=== PATIENT | male | born 1945 | race Caucasian/White ===

== ENCOUNTER → 2017-07-16 | Outpatient (CLI) | payer MEDICARE ==
[~2017-07-16] MED LIST: AMLO5TAB2 PO; AMLODIPINE PO; ASPI-496 PO; BENA10TA2 PO; BENA20TA2 PO; DICL75TA2 PO; FINA5TAB4 PO; GABA300C10 PO; METH750T87 PO; METO25TA35 PO; MULT-717 PO; OXYC-302 PO; OXYC-306 PO; PRAV20TA2 PO; PRAV40TA2 PO; TAMS0.4C2 PO; TRAZ100T15 PO; TRAZ50TA18 PO
[2017-07-16 17:05] LABS: HEMATOCRIT 37.6 % (39.2-51.8); HEMOGLOBIN 12.7 g/dL (13.7-18.0); WHITE BLOOD COUNT 6.2 x10^3/uL (3.4-10)
== END | disposition home or self-care (01) ==
LOC: RAD 15:19
PROVIDERS: ATTEND Orthopaedic Surgery Orthopaedic Surgery of the Spine
DX: M47.816 Spondylosis without myelopathy or radiculopathy, lumbar region (principal); M47.817 Spondylosis without myelopathy or radiculopathy, lumbosacral region; M51.26 Other intervertebral disc displacement, lumbar region; M48.06 Spinal stenosis, lumbar region; M48.07 Spinal stenosis, lumbosacral region; M85.68 Other cyst of bone, other site; M46.1 Sacroiliitis, not elsewhere classified; M96.1 Postlaminectomy syndrome, not elsewhere classified; Z98.1 Arthrodesis status
CPT/HCPCS: 36415; 72148; 85025

== ENCOUNTER 2017-12-12 11:37 | Day surgery (SDC) | payer MEDICARE ==
[~2017-12-12] VITALS: Ht 180.3 cm; Wt 85.9 kg
[2017-12-12] MEDS ORDERED: LACTATED RINGERS 1,000 ML IV SCH (12:05)
[2017-12-12 12:23] VITALS: BP 155/96
[2017-12-12] MEDS ORDERED: CHLORHEXIDINE 15 ML BOTTLE MM ONE (13:00)
[2017-12-12] MEDS ORDERED: CIPROFLOXACIN/PMX 400MG/200ML 200 ML IVPB ONE (13:00)
[2017-12-12] MEDS ORDERED: SUCCINYLCHOLINE 20 MG/ML, 10ML ONE (13:11)
[2017-12-12] MEDS ORDERED: PROPOFOL 10 MG/ML, 20ML ONE ×3 (13:11→14:12)
[2017-12-12] MEDS ORDERED: PROMETHAZINE 12.5 MG SUPP PR PRN (13:30)
[2017-12-12] MEDS ORDERED: LABETALOL 5MG/ML, 20ML IV PRN (13:30)
[2017-12-12] MEDS ORDERED: HYDROmorphone 1 MG/ML, 1ML IV PRN (13:30)
[2017-12-12] MEDS ORDERED: FENTANYL PF 100 MCG/2ML IV PRN (13:30)
[2017-12-12] MEDS ORDERED: ONDANSETRON 2MG/ML, 2ML IVPush PRN (13:30)
[2017-12-12] MEDS ORDERED: hydrALAzine 20 MG/ML, 1ML IV PRN (13:30)
== END 2017-12-12 14:50 | disposition home or self-care (01) ==
LOC: OUT 11:37
PROVIDERS: ATTEND Internal Medicine Gastroenterology
DX: K86.2 Cyst of pancreas (principal); K21.0 Gastro-esophageal reflux disease with esophagitis; I10 Essential (primary) hypertension; Z98.890 Other specified postprocedural states; Z96.649 Presence of unspecified artificial hip joint; Z79.82 Long term (current) use of aspirin; Z88.6 Allergy status to analgesic agent; Z88.0 Allergy status to penicillin
CPT/HCPCS: 43239; 43242; 88305; J0744; J2704; J7120; J0330

== ENCOUNTER 2018-03-26 10:55 | Inpatient (IN) | payer MEDICARE ==
[~2018-03-26] VITALS: Ht 180.3 cm; Wt 89.4 kg
[2018-03-26] MEDS ORDERED: GABA300C10 PO (11:18)
[2018-03-26] MEDS ORDERED: PANT40TA5 PO (11:18)
[2018-03-26] MEDS ORDERED: HYDR-3341 PO (11:18)
[2018-03-26] MEDS ORDERED: SODIUM CHLORIDE FLUSH 10ML SYR IVF ONE ×2 (11:30→12:00)
[2018-03-26 11:46] LABS: CHLORIDE 102 mmol/L (98-107)
[2018-03-26 11:49] LABS: BASOPHILS % (AUTO) 0 % (0-1); EOSINOPHILS # (AUTO) 0.01 x10^3/uL (0-0.4); EOSINOPHILS % (AUTO) 0 % (1-7); LYMPHOCYTES # (AUTO) 0.45 x10^3/uL (1-3.4); LYMPHOCYTES % (AUTO) 3 % (22-44); MD NO; MEAN CORPUSCULAR HEMOGLOBIN 33.2 pg (27.5-34.5); MEAN CORPUSCULAR HGB CONC 33.8 g/dL (33.2-36.2); MEAN CORPUSCULAR VOLUME 98.2 fL (81-97); MEAN PLATELET VOLUME 7.9 fL (7.4-10.4); MONOCYTES # (AUTO) 0.96 x10^3/uL (0.2-0.8); MONOCYTES % (AUTO) 6 % (2-9); NEUTROPHILS # (AUTO) 14.79 x10^3/uL (1.8-6.8); NEUTROPHILS % (AUTO) 91 % (42-75); PLATELET COUNT 173 x10^3/uL (130-400); RED BLOOD COUNT 4.16 x10^6/uL (4.38-5.82); RED CELL DISTRIBUTION WIDTH 14.8 % (9.4-14.8)
[2018-03-26 11:55] LABS: ALANINE AMINOTRANSFERASE 85 U/L (12-78); ALBUMIN 3.5 g/dL (3.4-5.0); ALKALINE PHOSPHATASE 180 U/L (45-117); ANION GAP 9 mmol/L (5-15); BILIRUBIN,TOTAL 1.1 mg/dL (0.2-1.0); CALCIUM 8.4 mg/dL (8.5-10.1); CREATININE 1.81 mg/dL (0.7-1.3); TOTAL PROTEIN 7.1 g/dL (6.4-8.2); TROPONIN I < 0.015 ng/mL (0.000-0.045)
[2018-03-26] MEDS ORDERED: CEFTRIAXONE PMX 1GM/50ML 50 ML IVPB ONE (12:00)
[2018-03-26] MEDS ORDERED: AZITHROMYCIN 500 MG in SODIUM CHLORIDE 0.9% 250 ML IV ONE (12:00)
[2018-03-26] MEDS ORDERED: SODIUM CHLORIDE 0.9% 1,000ML IVBOLUS ONE (12:00)
[2018-03-26 12:21] LABS: MICROSCOPIC INDICATED
[2018-03-26 12:25] LABS: CULTURE INDICATED? NO
[2018-03-26] MEDS ORDERED: CEFTRIAXONE PMX 1GM/50ML 50 ML ONE (12:27)
[2018-03-26] MEDS ORDERED: GUAIFENESIN/DM 200-20MG, 10ML UDC PO PRN (12:30)
[2018-03-26] MEDS ORDERED: ONDANSETRON 2MG/ML, 2ML IVPush PRN (12:30)
[2018-03-26] MEDS ORDERED: ACETAMINOPHEN 325 MG TABLET PO PRN (12:30)
[2018-03-26] MEDS ORDERED: DOCUSATE 100 MG CAPSULE PO PRN (12:30)
[2018-03-26] MEDS ORDERED: MAGNESIUM SULFATE PMX 2GM/50ML 50 ML IV ONE (13:22)
[2018-03-26] MEDS: SODIUM CHLORIDE 0.9% 1,000 ML IV SCH (14:44)
[2018-03-26] MEDS: OXYcodone/APAP 5/325MG TABLET PO PRN ×2 (14:44→22:53)
[2018-03-26] MEDS: ENOXAPARIN 40 MG/0.4 ML SQ SCH (15:19)
[2018-03-26 15:22] VITALS: BP 114/77
[2018-03-26 19:48] VITALS: BP 101/65
[2018-03-26] MEDS: GABAPENTIN 300 MG CAPSULE PO SCH (20:22)
[2018-03-26] MEDS: PANTOPROZOLE 40MG TABLET PO SCH (20:22)
[2018-03-26] MEDS: PRAVASTATIN 20 MG TABLET PO SCH (20:22)
[2018-03-27] MEDS: SODIUM CHLORIDE 0.9% 1,000 ML IV SCH ×3 (00:56→20:04)
[2018-03-27 01:10] VITALS: BP 148/79
[2018-03-27 06:18] LABS: BASOPHILS # (AUTO) 0.01 x10^3/uL (0-0.1); BASOPHILS % (AUTO) 0 % (0-1); EOSINOPHILS # (AUTO) 0.08 x10^3/uL (0-0.4); EOSINOPHILS % (AUTO) 1 % (1-7); HCT (SEDRATE) 34.1 % (39.2-51.8); LYMPHOCYTES # (AUTO) 0.48 x10^3/uL (1-3.4); LYMPHOCYTES % (AUTO) 6 % (22-44); MD NO; MEAN CORPUSCULAR HEMOGLOBIN 32.9 pg (27.5-34.5); MEAN CORPUSCULAR HGB CONC 33.6 g/dL (33.2-36.2); MEAN CORPUSCULAR VOLUME 97.8 fL (81-97); MEAN PLATELET VOLUME 7.1 fL (7.4-10.4); MONOCYTES # (AUTO) 0.35 x10^3/uL (0.2-0.8); MONOCYTES % (AUTO) 4 % (2-9); NEUTROPHILS # (AUTO) 7.91 x10^3/uL (1.8-6.8); NEUTROPHILS % (AUTO) 90 % (42-75); PLATELET COUNT 131 x10^3/uL (130-400); RED BLOOD COUNT 3.48 x10^6/uL (4.38-5.82); RED CELL DISTRIBUTION WIDTH 15.4 % (9.4-14.8)
[2018-03-27 06:28] LABS: ALANINE AMINOTRANSFERASE 53 U/L (12-78); ALBUMIN 2.6 g/dL (3.4-5.0); ANION GAP 7 mmol/L (5-15); CALCIUM 8.1 mg/dL (8.5-10.1); CHLORIDE 107 mmol/L (98-107); CREATININE 1.29 mg/dL (0.7-1.3)
[2018-03-27 06:30] LABS: ALKALINE PHOSPHATASE 132 U/L (45-117); BILIRUBIN,TOTAL 0.8 mg/dL (0.2-1.0); TOTAL PROTEIN 5.7 g/dL (6.4-8.2)
[2018-03-27 06:57] LABS: SEDIMENTATION RATE 34 mm/hr (0-10)
[2018-03-27 08:00] VITALS: BP 160/94
[2018-03-27] MEDS: CEFTRIAXONE PMX 1GM/50ML 50 ML IV SCH (08:17)
[2018-03-27] MEDS: PANTOPROZOLE 40MG TABLET PO SCH ×2 (08:17→20:01)
[2018-03-27] MEDS: GABAPENTIN 300 MG CAPSULE PO SCH ×2 (08:17→20:01)
[2018-03-27] MEDS: ASPIRIN 81 MG TABLET EC PO SCH (08:17)
[2018-03-27] MEDS ORDERED: TRAZODONE 50MG TABLET PO SCH (09:00)
[2018-03-27] MEDS: AZITHROMYCIN 500 MG in SODIUM CHLORIDE 0.9% 250 ML IV SCH (11:02)
[2018-03-27] MEDS ORDERED: SODIUM CHLORIDE 0.9% 1,000 ML IV SCH (13:19)
[2018-03-27] MEDS: ENOXAPARIN 40 MG/0.4 ML SQ SCH (14:34)
[2018-03-27 14:35] VITALS: BP 146/87
[2018-03-27] MEDS: OXYcodone/APAP 5/325MG TABLET PO PRN (15:46)
[2018-03-27 18:28] VITALS: BP 147/82
[2018-03-27] MEDS: PRAVASTATIN 20 MG TABLET PO SCH (20:01)
[2018-03-28 02:40] VITALS: BP 128/78
[2018-03-28] MEDS: SODIUM CHLORIDE 0.9% 1,000 ML IV SCH (04:37)
[2018-03-28] MEDS: OXYcodone/APAP 5/325MG TABLET PO PRN (05:47)
[2018-03-28] MEDS ORDERED: LEVO750T26 PO (07:36)
[2018-03-28] MEDS ORDERED: LEVOFLOXACIN 750 MG TABLET PO SCH (09:00)
[2018-03-28 10:10] VITALS: BP 169/88
[2018-03-28] MEDS: ASPIRIN 81 MG TABLET EC PO SCH (10:22)
[2018-03-28] MEDS: GABAPENTIN 300 MG CAPSULE PO SCH (10:22)
[2018-03-28] MEDS: CEFTRIAXONE PMX 1GM/50ML 50 ML IV SCH (10:22)
[2018-03-28] MEDS: PANTOPROZOLE 40MG TABLET PO SCH (10:22)
[2018-03-28] MEDS: AZITHROMYCIN 500 MG in SODIUM CHLORIDE 0.9% 250 ML IV SCH (10:58)
[2018-03-28 13:11] VITALS: BP 158/80
== END 2018-03-28 13:29 | disposition home or self-care (01) | DRG 871 ==
LOC: ED 12:10 → EDIP 12:19 → SUATTDRO 12:26 → 3NW 13:18 → DCLOUNGE 03-28 13:10
PROVIDERS: ADMIT Internal Medicine; ATTEND Internal Medicine
DX: A41.9 Sepsis, unspecified organism (principal); J15.9 Unspecified bacterial pneumonia; E43 Unspecified severe protein-calorie malnutrition; N17.9 Acute kidney failure, unspecified; G62.9 Polyneuropathy, unspecified; E83.42 Hypomagnesemia; Z88.0 Allergy status to penicillin; Z68.27 Body mass index [BMI] 27.0-27.9, adult; E66.9 Obesity, unspecified; E78.5 Hyperlipidemia, unspecified; F10.10 Alcohol abuse, uncomplicated; G47.00 Insomnia, unspecified; G89.4 Chronic pain syndrome; I12.9 Hypertensive chronic kidney disease with stage 1 through stage 4 chronic kidney disease, or unspecified chronic kidney disease; N18.2 Chronic kidney disease, stage 2 (mild); R65.20 Severe sepsis without septic shock; Z87.11 Personal history of peptic ulcer disease; Z95.2 Presence of prosthetic heart valve; Z96.649 Presence of unspecified artificial hip joint
CPT/HCPCS: 36415; 71045; 80053; 81001; 83605; 83735; 84145; 84484; 85025; 85651; 87040; 93005; 96365; 96366; 96368; J0456; J0696; J1650; J3475; J7030; J7050

== ENCOUNTER 2020-03-22 14:14 | Inpatient (IN) | payer MEDICARE ==
[~2020-03-22] VITALS: Ht 180.3 cm; Wt 74.7 kg
[~2020-03-22 14:14] MED LIST changes: +AMLO-150 PO; -AMLO5TAB2 PO; -BENA10TA2 PO; +BENA10TA59 PO; -BENA20TA2 PO; +BENA20TA54 PO; -DICL75TA2 PO; +DICL75TA3 PO; +HYDR-3341 PO; +LEVO750T26 PO; +PANT40TA5 PO; +TRAZ-175 PO; -TRAZ100T15 PO; -TRAZ50TA18 PO; +TRAZ50TA66 PO
[2020-03-22 18:26] VITALS: BP 118/81
[2020-03-22] MEDS ORDERED: LEVO75TA PO (18:27)
[2020-03-22] MEDS ORDERED: DULO30CA44 PO (18:27)
[2020-03-22] MEDS ORDERED: TAMS-11 PO (18:27)
[2020-03-22] MEDS ORDERED: PRAV40TA PO (18:27)
[2020-03-22] MEDS ORDERED: MULT-658 PO (18:27)
[2020-03-22] MEDS ORDERED: LISI10TA2 PO (18:27)
[2020-03-22] MEDS ORDERED: TRAZ-96 PO (18:27)
[2020-03-22] MEDS ORDERED: OMEP20CA20 PO (18:27)
[2020-03-22] MEDS ORDERED: SODIUM CHLORIDE 0.9% 1,000 ML IV SCH (19:19)
[2020-03-22] MEDS ORDERED: BISACODYL 10 MG SUPP PR PRN (19:30)
[2020-03-22] MEDS ORDERED: PLEASE ENTER HEIGHT AND WEIGHT MC SCH (19:30)
[2020-03-22] MEDS ORDERED: ACETAMINOPHEN 325 MG TABLET PO PRN (19:30)
[2020-03-22] MEDS ORDERED: PLEASE ENTER HEIGHT MC SCH (19:30)
[2020-03-22] MEDS ORDERED: ONDANSETRON ODT 4 MG PO PRN (19:30)
[2020-03-22] MEDS ORDERED: POLYETHYLENE GLYCOL 17 GM PACKET PO PRN (19:30)
[2020-03-22 19:42] VITALS: BP 117/75
[2020-03-22 20:05] LABS: ALANINE AMINOTRANSFERASE 37 U/L (12-78); ALBUMIN 1.5 g/dL (3.4-5.0); ANION GAP 7 mmol/L (5-15); CALCIUM 7.4 mg/dL (8.5-10.1); CHLORIDE 101 mmol/L (98-107); CREATININE 1.38 mg/dL (0.7-1.3)
[2020-03-22 20:11] LABS: BASOPHILS # (AUTO) 0.02 x10^3/uL (0-0.1); BASOPHILS % (AUTO) 0 % (0-1); EOSINOPHILS # (AUTO) 0.13 x10^3/uL (0-0.4); EOSINOPHILS % (AUTO) 2 % (1-7); LYMPHOCYTES # (AUTO) 0.71 x10^3/uL (1-3.4); LYMPHOCYTES % (AUTO) 11 % (22-44); MD NO; MEAN CORPUSCULAR HEMOGLOBIN 31.9 pg (27.5-34.5); MEAN CORPUSCULAR HGB CONC 32.8 g/dL (33.2-36.2); MEAN CORPUSCULAR VOLUME 97.4 fL (81-97); MEAN PLATELET VOLUME 7.7 fL (7.4-10.4); MONOCYTES # (AUTO) 0.57 x10^3/uL (0.2-0.8); MONOCYTES % (AUTO) 9 % (2-9); NEUTROPHILS # (AUTO) 5.24 x10^3/uL (1.8-6.8); NEUTROPHILS % (AUTO) 79 % (42-75); PLATELET COUNT 188 x10^3/uL (130-400); RED BLOOD COUNT 3.03 x10^6/uL (4.38-5.82); RED CELL DISTRIBUTION WIDTH 15.8 % (9.4-14.8)
[2020-03-22 20:16] LABS: ALKALINE PHOSPHATASE 94 U/L (45-117); BILIRUBIN,TOTAL 0.3 mg/dL (0.2-1.0); CREATINE KINASE, TOTAL 95 U/L (39-308); TOTAL PROTEIN 4.9 g/dL (6.4-8.2)
[2020-03-22] MEDS: CEFTRIAXONE PMX 1GM/50ML 50 ML IV SCH (20:27)
[2020-03-22] MEDS: HEPARIN 5,000 UNITS/ML, 1ML SQ SCH (20:27)
[2020-03-22] MEDS: PRAVASTATIN 40 MG TABLET PO SCH (20:28)
[2020-03-22] MEDS: OMEPRAZOLE 20 MG CAPSULE.DR PO SCH (20:28)
[2020-03-22] MEDS: TRAZODONE 50MG TABLET PO SCH (20:28)
[2020-03-22 20:31] LABS: FREE T4 (FREE THYROXINE) 1.18 ng/dL (0.76-1.46)
[2020-03-22] MEDS ORDERED: MAGNESIUM SULFATE PMX 4GM/100M 100 ML IVPB ONE (21:00)
[2020-03-22 21:31] VITALS: BP 119/79
[2020-03-23 01:22] VITALS: BP 140/88
[2020-03-23] MEDS: HEPARIN 5,000 UNITS/ML, 1ML SQ SCH ×3 (03:56→20:03)
[2020-03-23 05:44] LABS: BASOPHILS # (AUTO) 0.02 x10^3/uL (0-0.1); BASOPHILS % (AUTO) 0 % (0-1); EOSINOPHILS # (AUTO) 0.14 x10^3/uL (0-0.4); EOSINOPHILS % (AUTO) 3 % (1-7); LYMPHOCYTES # (AUTO) 0.69 x10^3/uL (1-3.4); LYMPHOCYTES % (AUTO) 12 % (22-44); MD NO; MEAN CORPUSCULAR HEMOGLOBIN 31.4 pg (27.5-34.5); MEAN CORPUSCULAR HGB CONC 32.9 g/dL (33.2-36.2); MEAN CORPUSCULAR VOLUME 95.3 fL (81-97); MEAN PLATELET VOLUME 7.7 fL (7.4-10.4); MONOCYTES # (AUTO) 0.45 x10^3/uL (0.2-0.8); MONOCYTES % (AUTO) 8 % (2-9); NEUTROPHILS # (AUTO) 4.37 x10^3/uL (1.8-6.8); NEUTROPHILS % (AUTO) 77 % (42-75); PLATELET COUNT 184 x10^3/uL (130-400)
[2020-03-23 05:56] LABS: ANION GAP 9 mmol/L (5-15); CALCIUM 7.6 mg/dL (8.5-10.1); CHLORIDE 101 mmol/L (98-107)
[2020-03-23 05:57] LABS: CREATININE 1.18 mg/dL (0.7-1.3)
[2020-03-23] MEDS: LEVOTHYROXINE 88 MCG TABLET PO SCH (06:00)
[2020-03-23] MEDS ORDERED: LEVOTHYROXINE 75 MCG TABLET PO SCH (06:00)
[2020-03-23] MEDS: MULTIVITAMIN 1 TABLET PO SCH (06:00)
[2020-03-23 07:35] VITALS: BP 131/76
[2020-03-23] MEDS: DULOXETINE 30 MG CAPSULE.DR PO SCH (08:38)
[2020-03-23] MEDS: OMEPRAZOLE 20 MG CAPSULE.DR PO SCH ×2 (08:38→20:03)
[2020-03-23] MEDS: LISINOPRIL 10 MG TABLET PO SCH (08:39)
[2020-03-23] MEDS: TAMSULOSIN 0.4 MG CAP.ER.24H PO SCH (08:39)
[2020-03-23] MEDS: SENNA/DOCUSATE TABLET PO SCH (08:51)
[2020-03-23 13:49] VITALS: BP 100/69
[2020-03-23 18:48] VITALS: BP 130/80
[2020-03-23] MEDS: PRAVASTATIN 40 MG TABLET PO SCH (20:03)
[2020-03-23] MEDS: CEFTRIAXONE PMX 1GM/50ML 50 ML IV SCH (20:03)
[2020-03-23] MEDS: TRAZODONE 50MG TABLET PO SCH (20:03)
[2020-03-24 01:46] VITALS: BP 141/84
[2020-03-24] MEDS: HEPARIN 5,000 UNITS/ML, 1ML SQ SCH ×3 (03:27→20:09)
[2020-03-24] MEDS: MULTIVITAMIN 1 TABLET PO SCH (05:40)
[2020-03-24] MEDS: LEVOTHYROXINE 88 MCG TABLET PO SCH (05:40)
[2020-03-24 08:01] VITALS: BP 125/70
[2020-03-24] MEDS: LISINOPRIL 10 MG TABLET PO SCH (08:04)
[2020-03-24] MEDS: SENNA/DOCUSATE TABLET PO SCH (08:04)
[2020-03-24] MEDS: DULOXETINE 30 MG CAPSULE.DR PO SCH (08:04)
[2020-03-24] MEDS: OMEPRAZOLE 20 MG CAPSULE.DR PO SCH ×2 (08:04→20:08)
[2020-03-24] MEDS: TAMSULOSIN 0.4 MG CAP.ER.24H PO SCH (08:04)
[2020-03-24 13:18] VITALS: BP 121/75
[2020-03-24] MEDS: CARVEDILOL 6.25 MG TABLET PO SCH (17:24)
[2020-03-24 18:55] VITALS: BP 119/65
[2020-03-24] MEDS: PRAVASTATIN 40 MG TABLET PO SCH (20:08)
[2020-03-24] MEDS: CEFTRIAXONE PMX 1GM/50ML 50 ML IV SCH (20:08)
[2020-03-24] MEDS: TRAZODONE 50MG TABLET PO SCH (20:08)
[2020-03-25 02:00] VITALS: BP 118/72
[2020-03-25] MEDS: HEPARIN 5,000 UNITS/ML, 1ML SQ SCH ×3 (04:43→20:23)
[2020-03-25 05:47] VITALS: BP 133/85
[2020-03-25] MEDS: MULTIVITAMIN 1 TABLET PO SCH (05:47)
[2020-03-25] MEDS: LEVOTHYROXINE 88 MCG TABLET PO SCH (05:47)
[2020-03-25] MEDS: CARVEDILOL 6.25 MG TABLET PO SCH ×2 (05:47→16:58)
[2020-03-25 06:56] VITALS: BP 126/80
[2020-03-25] MEDS: OMEPRAZOLE 20 MG CAPSULE.DR PO SCH ×2 (09:14→20:25)
[2020-03-25] MEDS: DULOXETINE 30 MG CAPSULE.DR PO SCH (09:14)
[2020-03-25] MEDS: SENNA/DOCUSATE TABLET PO SCH (09:14)
[2020-03-25] MEDS: TAMSULOSIN 0.4 MG CAP.ER.24H PO SCH (09:14)
[2020-03-25 10:13] LABS: ANION GAP 9 mmol/L (5-15); CALCIUM 7.9 mg/dL (8.5-10.1); CHLORIDE 105 mmol/L (98-107); CREATININE 0.86 mg/dL (0.7-1.3)
[2020-03-25] MEDS: GABAPENTIN 100 MG CAPSULE PO SCH ×3 (11:01→20:24)
[2020-03-25] MEDS ORDERED: MAGNESIUM SULFATE 1 GM in SODIUM CHLORIDE 0.9% 50 ML IV ONE (13:30)
[2020-03-25 13:48] VITALS: BP 133/80
[2020-03-25 16:57] VITALS: BP 125/78
[2020-03-25 19:44] VITALS: BP 121/75
[2020-03-25] MEDS: PRAVASTATIN 40 MG TABLET PO SCH (20:24)
[2020-03-25] MEDS: TRAZODONE 50MG TABLET PO SCH (20:25)
[2020-03-25] MEDS: CEFTRIAXONE PMX 1GM/50ML 50 ML IV SCH (22:27)
[2020-03-26 00:26] VITALS: BP 128/80
[2020-03-26] MEDS: HEPARIN 5,000 UNITS/ML, 1ML SQ SCH ×3 (04:30→20:05)
[2020-03-26] MEDS: CARVEDILOL 6.25 MG TABLET PO SCH ×2 (06:17→16:57)
[2020-03-26] MEDS: LEVOTHYROXINE 88 MCG TABLET PO SCH (06:17)
[2020-03-26] MEDS: MULTIVITAMIN 1 TABLET PO SCH (06:17)
[2020-03-26 06:34] VITALS: BP 113/67
[2020-03-26] MEDS: SENNA/DOCUSATE TABLET PO SCH (08:19)
[2020-03-26] MEDS: GABAPENTIN 100 MG CAPSULE PO SCH ×3 (08:19→20:05)
[2020-03-26] MEDS: TAMSULOSIN 0.4 MG CAP.ER.24H PO SCH (08:19)
[2020-03-26] MEDS: OMEPRAZOLE 20 MG CAPSULE.DR PO SCH ×2 (08:20→20:05)
[2020-03-26] MEDS: DULOXETINE 30 MG CAPSULE.DR PO SCH (08:20)
[2020-03-26] MEDS ORDERED: OXYcodone/APAP 5/325MG TABLET ONE (11:52)
[2020-03-26] MEDS: OXYcodone/APAP 5/325MG TABLET PO PRN ×2 (11:56→16:57)
[2020-03-26 13:14] VITALS: BP 101/63
[2020-03-26 16:52] VITALS: BP 113/69
[2020-03-26 19:39] VITALS: BP 96/61
[2020-03-26] MEDS: PRAVASTATIN 40 MG TABLET PO SCH (20:05)
[2020-03-26] MEDS: TRAZODONE 50MG TABLET PO SCH (20:05)
[2020-03-26] MEDS: CEFTRIAXONE PMX 1GM/50ML 50 ML IV SCH (22:40)
[2020-03-27 02:36] VITALS: BP 108/63
[2020-03-27] MEDS: HEPARIN 5,000 UNITS/ML, 1ML SQ SCH ×3 (04:30→20:18)
[2020-03-27 05:45] LABS: BASOPHILS # (AUTO) 0.03 x10^3/uL (0-0.1); BASOPHILS % (AUTO) 1 % (0-1); EOSINOPHILS # (AUTO) 0.29 x10^3/uL (0-0.4); EOSINOPHILS % (AUTO) 5 % (1-7); LYMPHOCYTES # (AUTO) 0.71 x10^3/uL (1-3.4); LYMPHOCYTES % (AUTO) 13 % (22-44); MD NO; MEAN CORPUSCULAR HEMOGLOBIN 31.1 pg (27.5-34.5); MEAN CORPUSCULAR HGB CONC 32.8 g/dL (33.2-36.2); MEAN CORPUSCULAR VOLUME 94.8 fL (81-97); MEAN PLATELET VOLUME 7.5 fL (7.4-10.4); MONOCYTES # (AUTO) 0.51 x10^3/uL (0.2-0.8); MONOCYTES % (AUTO) 9 % (2-9); NEUTROPHILS # (AUTO) 3.99 x10^3/uL (1.8-6.8); NEUTROPHILS % (AUTO) 72 % (42-75); PLATELET COUNT 218 x10^3/uL (130-400); RED BLOOD COUNT 3.01 x10^6/uL (4.38-5.82); RED CELL DISTRIBUTION WIDTH 16.3 % (9.4-14.8)
[2020-03-27 05:50] LABS: ANION GAP 6 mmol/L (5-15); CHLORIDE 105 mmol/L (98-107); CREATININE 0.84 mg/dL (0.7-1.3)
[2020-03-27] MEDS: LEVOTHYROXINE 88 MCG TABLET PO SCH (05:57)
[2020-03-27] MEDS: CARVEDILOL 6.25 MG TABLET PO SCH (05:58)
[2020-03-27] MEDS: MULTIVITAMIN 1 TABLET PO SCH (05:58)
[2020-03-27] MEDS: OXYcodone/APAP 5/325MG TABLET PO PRN ×2 (06:06→15:24)
[2020-03-27 06:59] VITALS: BP 111/68
[2020-03-27] MEDS: SENNA/DOCUSATE TABLET PO SCH (08:16)
[2020-03-27] MEDS: OMEPRAZOLE 20 MG CAPSULE.DR PO SCH ×2 (08:16→20:18)
[2020-03-27] MEDS: TAMSULOSIN 0.4 MG CAP.ER.24H PO SCH (08:16)
[2020-03-27] MEDS: GABAPENTIN 100 MG CAPSULE PO SCH ×3 (08:16→20:18)
[2020-03-27] MEDS: DULOXETINE 30 MG CAPSULE.DR PO SCH (08:16)
[2020-03-27 13:29] VITALS: BP 109/70
[2020-03-27 19:03] VITALS: BP 92/60
[2020-03-27] MEDS: PRAVASTATIN 40 MG TABLET PO SCH (20:18)
[2020-03-27] MEDS: CARVEDILOL 3.125 MG TABLET PO SCH (20:23)
[2020-03-27] MEDS: TRAZODONE 50MG TABLET PO SCH (20:23)
[2020-03-27] MEDS: CEFTRIAXONE PMX 1GM/50ML 50 ML IV SCH (22:48)
[2020-03-28 00:57] VITALS: BP 108/70
[2020-03-28] MEDS: HEPARIN 5,000 UNITS/ML, 1ML SQ SCH ×3 (04:30→20:25)
[2020-03-28] MEDS: LEVOTHYROXINE 88 MCG TABLET PO SCH (06:05)
[2020-03-28] MEDS: CARVEDILOL 3.125 MG TABLET PO SCH ×2 (06:06→17:40)
[2020-03-28] MEDS: MULTIVITAMIN 1 TABLET PO SCH (06:06)
[2020-03-28] MEDS: OXYcodone/APAP 5/325MG TABLET PO PRN ×3 (06:12→16:13)
[2020-03-28 07:03] VITALS: BP 100/64
[2020-03-28] MEDS: OMEPRAZOLE 20 MG CAPSULE.DR PO SCH ×2 (09:38→20:26)
[2020-03-28] MEDS: GABAPENTIN 100 MG CAPSULE PO SCH ×3 (09:38→20:26)
[2020-03-28] MEDS: TAMSULOSIN 0.4 MG CAP.ER.24H PO SCH (09:38)
[2020-03-28] MEDS: DULOXETINE 30 MG CAPSULE.DR PO SCH (09:38)
[2020-03-28] MEDS: SENNA/DOCUSATE TABLET PO SCH (09:39)
[2020-03-28 14:05] VITALS: BP 99/61
[2020-03-28 17:36] VITALS: BP 112/72
[2020-03-28 19:36] VITALS: BP 95/64
[2020-03-28] MEDS: TRAZODONE 50MG TABLET PO SCH (20:26)
[2020-03-28] MEDS: PRAVASTATIN 40 MG TABLET PO SCH (20:26)
[2020-03-28] MEDS: CEFTRIAXONE PMX 1GM/50ML 50 ML IV SCH (22:16)
[2020-03-29 00:11] VITALS: BP 121/77
[2020-03-29 05:15] VITALS: BP 123/79
[2020-03-29] MEDS: MULTIVITAMIN 1 TABLET PO SCH (05:16)
[2020-03-29] MEDS: HEPARIN 5,000 UNITS/ML, 1ML SQ SCH ×3 (05:16→20:24)
[2020-03-29] MEDS: CARVEDILOL 3.125 MG TABLET PO SCH ×2 (05:16→18:08)
[2020-03-29] MEDS: LEVOTHYROXINE 88 MCG TABLET PO SCH (05:16)
[2020-03-29 05:19] LABS: ANION GAP 9 mmol/L (5-15); CALCIUM 7.9 mg/dL (8.5-10.1); CHLORIDE 105 mmol/L (98-107); CREATININE 0.77 mg/dL (0.7-1.3)
[2020-03-29 06:41] VITALS: BP 126/81
[2020-03-29] MEDS: SODIUM CHLORIDE 0.9% 500 ML IV SCH ×2 (09:00→09:43)
[2020-03-29] MEDS: DULOXETINE 30 MG CAPSULE.DR PO SCH (09:43)
[2020-03-29] MEDS: OXYcodone/APAP 5/325MG TABLET PO PRN (09:43)
[2020-03-29] MEDS: SENNA/DOCUSATE TABLET PO SCH (09:44)
[2020-03-29] MEDS: OMEPRAZOLE 20 MG CAPSULE.DR PO SCH ×2 (09:44→20:24)
[2020-03-29] MEDS: GABAPENTIN 100 MG CAPSULE PO SCH ×3 (09:44→20:24)
[2020-03-29] MEDS: TAMSULOSIN 0.4 MG CAP.ER.24H PO SCH (09:44)
[2020-03-29 13:52] VITALS: BP 116/73
[2020-03-29 18:06] VITALS: BP 113/71
[2020-03-29 20:19] VITALS: BP 97/61
[2020-03-29] MEDS: PRAVASTATIN 40 MG TABLET PO SCH (20:24)
[2020-03-29] MEDS: TRAZODONE 50MG TABLET PO SCH (20:24)
[2020-03-29] MEDS: CEFTRIAXONE PMX 1GM/50ML 50 ML IV SCH (23:42)
[2020-03-30 01:03] VITALS: BP 115/72
[2020-03-30] MEDS: HEPARIN 5,000 UNITS/ML, 1ML SQ SCH ×3 (04:30→20:28)
[2020-03-30] MEDS: CARVEDILOL 3.125 MG TABLET PO SCH ×2 (06:20→18:01)
[2020-03-30] MEDS: LEVOTHYROXINE 88 MCG TABLET PO SCH (06:20)
[2020-03-30] MEDS: MULTIVITAMIN 1 TABLET PO SCH (06:20)
[2020-03-30 07:13] VITALS: BP 149/88
[2020-03-30] MEDS: OMEPRAZOLE 20 MG CAPSULE.DR PO SCH ×2 (09:48→20:27)
[2020-03-30] MEDS: DULOXETINE 30 MG CAPSULE.DR PO SCH (09:48)
[2020-03-30] MEDS: TAMSULOSIN 0.4 MG CAP.ER.24H PO SCH (09:48)
[2020-03-30] MEDS: SENNA/DOCUSATE TABLET PO SCH (09:48)
[2020-03-30] MEDS: GABAPENTIN 100 MG CAPSULE PO SCH ×3 (09:49→20:28)
[2020-03-30] MEDS: OXYcodone/APAP 5/325MG TABLET PO PRN ×2 (11:19→16:31)
[2020-03-30 12:16] VITALS: BP 124/76
[2020-03-30] MEDS ORDERED: VANCOMYCIN PER PHARMACY MC PRN (16:00)
[2020-03-30] MEDS ORDERED: PHARMACOKINETIC MONITORING MC PRN (16:30)
[2020-03-30] MEDS: VANCOMYCIN 1,900 MG in SODIUM CHLORIDE 0.9% 250 ML IV ONE ×2 (18:01→21:20)
[2020-03-30 18:28] VITALS: BP 109/69
[2020-03-30] MEDS ORDERED: SODIUM CHLORIDE 0.9%, 500ML IVBOLUS ONE (19:00)
[2020-03-30] MEDS: TRAZODONE 50MG TABLET PO SCH (20:27)
[2020-03-30] MEDS: PRAVASTATIN 40 MG TABLET PO SCH (20:27)
[2020-03-30] MEDS ORDERED: VANCOMYCIN 1,500 MG in SODIUM CHLORIDE 0.9% 250 ML IV SCH (21:00)
[2020-03-30] MEDS: CEFTRIAXONE PMX 1GM/50ML 50 ML IV SCH (23:45)
[2020-03-31 00:06] VITALS: BP 137/86
[2020-03-31] MEDS: HEPARIN 5,000 UNITS/ML, 1ML SQ SCH ×3 (04:43→20:29)
[2020-03-31 06:03] VITALS: BP 131/79
[2020-03-31] MEDS: LEVOTHYROXINE 88 MCG TABLET PO SCH (06:07)
[2020-03-31] MEDS: MULTIVITAMIN 1 TABLET PO SCH (06:07)
[2020-03-31] MEDS: CARVEDILOL 3.125 MG TABLET PO SCH ×2 (06:08→17:49)
[2020-03-31] MEDS: GABAPENTIN 100 MG CAPSULE PO SCH ×3 (08:26→20:30)
[2020-03-31] MEDS: OMEPRAZOLE 20 MG CAPSULE.DR PO SCH ×2 (08:26→20:29)
[2020-03-31] MEDS: TAMSULOSIN 0.4 MG CAP.ER.24H PO SCH (08:26)
[2020-03-31] MEDS: DULOXETINE 30 MG CAPSULE.DR PO SCH (08:26)
[2020-03-31] MEDS: SENNA/DOCUSATE TABLET PO SCH (08:26)
[2020-03-31] MEDS: OXYcodone/APAP 5/325MG TABLET PO PRN ×3 (08:27→20:21)
[2020-03-31] MEDS ORDERED: FLUMAZENIL 0.1 MG/1 ML, 5ML ONE (13:47)
[2020-03-31] MEDS ORDERED: MIDAZOLAM 1 MG/ML, 5ML ONE (13:47)
[2020-03-31] MEDS ORDERED: FENTANYL PF 100 MCG/2ML ONE (13:47)
[2020-03-31] MEDS ORDERED: NALOXONE 1 MG/ML, 2ML ONE (13:48)
[2020-03-31] MEDS ORDERED: CYCLOBENZAPRINE 10 MG TABLET PO PRN (16:30)
[2020-03-31] MEDS ORDERED: VANCOMYCIN 1,500 MG in SODIUM CHLORIDE 0.9% 250 ML IV SCH (16:30)
[2020-03-31 16:48] VITALS: BP 107/71
[2020-03-31] MEDS: MORPHINE SULFATE 4 MG/ML, 1ML IVPush PRN (17:50)
[2020-03-31 19:08] VITALS: BP 123/73
[2020-03-31] MEDS: TRAZODONE 50MG TABLET PO SCH (20:29)
[2020-03-31] MEDS: PRAVASTATIN 40 MG TABLET PO SCH (20:29)
[2020-03-31] MEDS: VANCOMYCIN 1,500 MG in SODIUM CHLORIDE 0.9% 250 ML IV SCH (22:09)
[2020-04-01] MEDS: CEFTRIAXONE PMX 1GM/50ML 50 ML IV SCH (00:24)
[2020-04-01 02:29] VITALS: BP 149/90
[2020-04-01] MEDS: HEPARIN 5,000 UNITS/ML, 1ML SQ SCH ×3 (04:37→20:17)
[2020-04-01 05:03] LABS: ANION GAP 11 mmol/L (5-15); CALCIUM 8.6 mg/dL (8.5-10.1); CHLORIDE 107 mmol/L (98-107); CREATININE 0.67 mg/dL (0.7-1.3)
[2020-04-01 05:06] LABS: BASOPHILS # (AUTO) 0.03 x10^3/uL (0-0.1); BASOPHILS % (AUTO) 0 % (0-1); EOSINOPHILS # (AUTO) 0.31 x10^3/uL (0-0.4); EOSINOPHILS % (AUTO) 4 % (1-7); LYMPHOCYTES # (AUTO) 0.68 x10^3/uL (1-3.4); LYMPHOCYTES % (AUTO) 8 % (22-44); MD NO; MEAN CORPUSCULAR HEMOGLOBIN 30.8 pg (27.5-34.5); MEAN CORPUSCULAR HGB CONC 32.5 g/dL (33.2-36.2); MEAN CORPUSCULAR VOLUME 94.8 fL (81-97); MONOCYTES # (AUTO) 0.48 x10^3/uL (0.2-0.8); MONOCYTES % (AUTO) 6 % (2-9); NEUTROPHILS % (AUTO) 82 % (42-75); PLATELET COUNT 254 x10^3/uL (130-400); RED BLOOD COUNT 3.18 x10^6/uL (4.38-5.82); RED CELL DISTRIBUTION WIDTH 15.9 % (9.4-14.8)
[2020-04-01] MEDS: LEVOTHYROXINE 88 MCG TABLET PO SCH (05:44)
[2020-04-01] MEDS: CARVEDILOL 3.125 MG TABLET PO SCH ×2 (05:44→17:09)
[2020-04-01] MEDS: MULTIVITAMIN 1 TABLET PO SCH (05:44)
[2020-04-01 07:11] VITALS: BP 128/79
[2020-04-01] MEDS: SENNA/DOCUSATE TABLET PO SCH (07:54)
[2020-04-01] MEDS: TAMSULOSIN 0.4 MG CAP.ER.24H PO SCH (07:56)
[2020-04-01] MEDS: OMEPRAZOLE 20 MG CAPSULE.DR PO SCH ×2 (07:56→20:19)
[2020-04-01] MEDS: GABAPENTIN 100 MG CAPSULE PO SCH ×3 (07:56→20:17)
[2020-04-01] MEDS: DULOXETINE 30 MG CAPSULE.DR PO SCH (07:56)
[2020-04-01] MEDS ORDERED: MIDAZOLAM 1 MG/ML, 5ML ONE (08:16)
[2020-04-01] MEDS ORDERED: FENTANYL PF 100 MCG/2ML ONE ×2 (08:16)
[2020-04-01] MEDS ORDERED: FLUMAZENIL 0.1 MG/1 ML, 5ML ONE (08:17)
[2020-04-01] MEDS ORDERED: NALOXONE 1 MG/ML, 2ML ONE (08:17)
[2020-04-01 14:05] VITALS: BP 102/67
[2020-04-01] MEDS: OXYcodone/APAP 5/325MG TABLET PO PRN ×2 (15:02→20:19)
[2020-04-01 19:30] VITALS: BP 99/66
[2020-04-01] MEDS: PRAVASTATIN 40 MG TABLET PO SCH (20:19)
[2020-04-01] MEDS: TRAZODONE 50MG TABLET PO SCH (20:19)
[2020-04-01] MEDS: VANCOMYCIN 1,500 MG in SODIUM CHLORIDE 0.9% 250 ML IV SCH (22:12)
[2020-04-02] VITALS (7 sets, daily range): BP systolic 87–109; BP diastolic 53–69
[2020-04-02] MEDS: CEFTRIAXONE PMX 1GM/50ML 50 ML IV SCH ×2 (00:12→23:43)
[2020-04-02] MEDS: OXYcodone/APAP 5/325MG TABLET PO PRN ×3 (00:59→19:52)
[2020-04-02] MEDS: HEPARIN 5,000 UNITS/ML, 1ML SQ SCH ×3 (04:34→20:22)
[2020-04-02] MEDS: LEVOTHYROXINE 88 MCG TABLET PO SCH (06:30)
[2020-04-02] MEDS: CARVEDILOL 3.125 MG TABLET PO SCH ×2 (06:30→17:04)
[2020-04-02] MEDS: MULTIVITAMIN 1 TABLET PO SCH (06:30)
[2020-04-02] MEDS: SENNA/DOCUSATE TABLET PO SCH (09:00)
[2020-04-02] MEDS: OMEPRAZOLE 20 MG CAPSULE.DR PO SCH ×2 (09:02→20:21)
[2020-04-02] MEDS: DULOXETINE 30 MG CAPSULE.DR PO SCH (09:02)
[2020-04-02] MEDS: TAMSULOSIN 0.4 MG CAP.ER.24H PO SCH (09:03)
[2020-04-02] MEDS: GABAPENTIN 100 MG CAPSULE PO SCH ×3 (09:03→20:21)
[2020-04-02] MEDS ORDERED: PHENAZOPYRIDINE 200 MG TABLET ONE (14:09)
[2020-04-02] MEDS ORDERED: SODIUM CHLORIDE 0.9%, 500ML IVBOLUS ONE (17:30)
[2020-04-02] MEDS: TRAZODONE 50MG TABLET PO SCH (20:21)
[2020-04-02] MEDS: PRAVASTATIN 40 MG TABLET PO SCH (20:21)
[2020-04-02] MEDS: VANCOMYCIN 1,500 MG in SODIUM CHLORIDE 0.9% 250 ML IV SCH (22:00)
[2020-04-03 00:03] VITALS: BP 102/68
[2020-04-03] MEDS: HEPARIN 5,000 UNITS/ML, 1ML SQ SCH ×3 (05:21→22:01)
[2020-04-03] MEDS: LEVOTHYROXINE 88 MCG TABLET PO SCH (05:22)
[2020-04-03] MEDS: MULTIVITAMIN 1 TABLET PO SCH (05:22)
[2020-04-03] MEDS: CARVEDILOL 3.125 MG TABLET PO SCH ×2 (05:22→18:40)
[2020-04-03 06:48] VITALS: BP 112/70
[2020-04-03] MEDS: OMEPRAZOLE 20 MG CAPSULE.DR PO SCH ×2 (09:30→22:01)
[2020-04-03] MEDS: SENNA/DOCUSATE TABLET PO SCH (09:30)
[2020-04-03] MEDS: TAMSULOSIN 0.4 MG CAP.ER.24H PO SCH (09:30)
[2020-04-03] MEDS: DULOXETINE 30 MG CAPSULE.DR PO SCH (09:30)
[2020-04-03] MEDS: GABAPENTIN 100 MG CAPSULE PO SCH ×3 (09:31→22:01)
[2020-04-03 14:01] VITALS: BP 97/56
[2020-04-03] MEDS: OXYcodone/APAP 5/325MG TABLET PO PRN ×2 (16:56→22:02)
[2020-04-03 18:42] VITALS: BP 109/71
[2020-04-03 18:58] VITALS: BP 101/66
[2020-04-03] MEDS: TRAZODONE 50MG TABLET PO SCH (22:01)
[2020-04-03] MEDS: PRAVASTATIN 40 MG TABLET PO SCH (22:01)
[2020-04-03] MEDS: CEFTRIAXONE PMX 1GM/50ML 50 ML IV SCH (23:57)
[2020-04-04 02:20] VITALS: BP 114/72
[2020-04-04] MEDS ORDERED: VANCOMYCIN 1,500 MG in SODIUM CHLORIDE 0.9% 250 ML IV SCH (05:00)
[2020-04-04] MEDS: HEPARIN 5,000 UNITS/ML, 1ML SQ SCH ×3 (05:25→20:14)
[2020-04-04] MEDS: CARVEDILOL 3.125 MG TABLET PO SCH ×2 (05:25→17:51)
[2020-04-04] MEDS: MULTIVITAMIN 1 TABLET PO SCH (05:25)
[2020-04-04] MEDS: LEVOTHYROXINE 88 MCG TABLET PO SCH (05:25)
[2020-04-04] MEDS: VANCOMYCIN 1,600 MG in SODIUM CHLORIDE 0.9% 250 ML IV SCH (05:26)
[2020-04-04 06:39] VITALS: BP 119/75
[2020-04-04] MEDS: TAMSULOSIN 0.4 MG CAP.ER.24H PO SCH (09:39)
[2020-04-04] MEDS: SENNA/DOCUSATE TABLET PO SCH (09:39)
[2020-04-04] MEDS: GABAPENTIN 100 MG CAPSULE PO SCH ×3 (09:39→20:13)
[2020-04-04] MEDS: DULOXETINE 30 MG CAPSULE.DR PO SCH (09:39)
[2020-04-04] MEDS: OMEPRAZOLE 20 MG CAPSULE.DR PO SCH ×2 (09:39→20:13)
[2020-04-04 12:08] VITALS: BP 117/74
[2020-04-04] MEDS: OXYcodone/APAP 5/325MG TABLET PO PRN ×2 (13:03→23:25)
[2020-04-04 19:19] VITALS: BP 118/75
[2020-04-04] MEDS: PRAVASTATIN 40 MG TABLET PO SCH (20:13)
[2020-04-04] MEDS: TRAZODONE 50MG TABLET PO SCH (20:13)
[2020-04-04] MEDS: SULFAMETH./TRIMETHOPRIM DS 800MG/160MG TABLET PO SCH (20:14)
[2020-04-05 00:57] VITALS: BP 115/75
[2020-04-05] MEDS: HEPARIN 5,000 UNITS/ML, 1ML SQ SCH ×3 (05:20→20:32)
[2020-04-05] MEDS: MULTIVITAMIN 1 TABLET PO SCH (05:20)
[2020-04-05] MEDS: LEVOTHYROXINE 88 MCG TABLET PO SCH (05:20)
[2020-04-05] MEDS: CARVEDILOL 3.125 MG TABLET PO SCH ×2 (05:20→18:07)
[2020-04-05] MEDS: OXYcodone/APAP 5/325MG TABLET PO PRN ×3 (05:28→22:48)
[2020-04-05] MEDS: SENNA/DOCUSATE TABLET PO SCH (07:34)
[2020-04-05] MEDS: GABAPENTIN 100 MG CAPSULE PO SCH ×4 (08:23→20:32)
[2020-04-05] MEDS: DULOXETINE 30 MG CAPSULE.DR PO SCH (08:23)
[2020-04-05] MEDS: TAMSULOSIN 0.4 MG CAP.ER.24H PO SCH (08:23)
[2020-04-05] MEDS: SULFAMETH./TRIMETHOPRIM DS 800MG/160MG TABLET PO SCH ×2 (08:23→20:32)
[2020-04-05] MEDS: OMEPRAZOLE 20 MG CAPSULE.DR PO SCH ×2 (08:23→20:32)
[2020-04-05 08:49] VITALS: BP 122/81
[2020-04-05 15:12] VITALS: BP 120/77
[2020-04-05 16:44] LABS: CREATININE 0.74 mg/dL (0.7-1.3); VANCOMYCIN,TROUGH 15.4 mcg/mL (5.0-10.0)
[2020-04-05] MEDS: VANCOMYCIN 1,600 MG in SODIUM CHLORIDE 0.9% 250 ML IV SCH (18:06)
[2020-04-05 18:48] VITALS: BP 116/76
[2020-04-05] MEDS: TRAZODONE 50MG TABLET PO SCH (20:32)
[2020-04-05] MEDS: PRAVASTATIN 40 MG TABLET PO SCH (20:32)
[2020-04-06 01:50] VITALS: BP 121/81
[2020-04-06] MEDS: MULTIVITAMIN 1 TABLET PO SCH (05:40)
[2020-04-06] MEDS: HEPARIN 5,000 UNITS/ML, 1ML SQ SCH ×4 (05:40→20:30)
[2020-04-06] MEDS: CARVEDILOL 3.125 MG TABLET PO SCH ×2 (05:40→16:53)
[2020-04-06] MEDS: LEVOTHYROXINE 88 MCG TABLET PO SCH (05:40)
[2020-04-06 07:04] VITALS: BP 119/75
[2020-04-06] MEDS: SENNA/DOCUSATE TABLET PO SCH (07:19)
[2020-04-06] MEDS: OXYcodone/APAP 5/325MG TABLET PO PRN ×2 (09:46→16:53)
[2020-04-06] MEDS: SULFAMETH./TRIMETHOPRIM DS 800MG/160MG TABLET PO SCH ×2 (09:46→20:26)
[2020-04-06] MEDS: DULOXETINE 30 MG CAPSULE.DR PO SCH (09:46)
[2020-04-06] MEDS: GABAPENTIN 100 MG CAPSULE PO SCH ×3 (09:46→20:27)
[2020-04-06] MEDS: TAMSULOSIN 0.4 MG CAP.ER.24H PO SCH (09:47)
[2020-04-06] MEDS: OMEPRAZOLE 20 MG CAPSULE.DR PO SCH ×2 (09:48→20:27)
[2020-04-06 15:34] VITALS: BP 126/82
[2020-04-06 18:54] VITALS: BP 120/80
[2020-04-06] MEDS: PRAVASTATIN 40 MG TABLET PO SCH (20:26)
[2020-04-06] MEDS: TRAZODONE 50MG TABLET PO SCH (20:27)
[2020-04-07 01:30] VITALS: BP 115/76
[2020-04-07] MEDS: MULTIVITAMIN 1 TABLET PO SCH (05:00)
[2020-04-07] MEDS: HEPARIN 5,000 UNITS/ML, 1ML SQ SCH ×2 (05:00→13:00)
[2020-04-07] MEDS: VANCOMYCIN 1,600 MG in SODIUM CHLORIDE 0.9% 250 ML IV SCH (05:01)
[2020-04-07] MEDS: LEVOTHYROXINE 88 MCG TABLET PO SCH (05:01)
[2020-04-07] MEDS: CARVEDILOL 3.125 MG TABLET PO SCH ×2 (05:01→16:32)
[2020-04-07 07:34] VITALS: BP 122/74
[2020-04-07] MEDS: SENNA/DOCUSATE TABLET PO SCH (09:00)
[2020-04-07] MEDS: TAMSULOSIN 0.4 MG CAP.ER.24H PO SCH (09:32)
[2020-04-07] MEDS: GABAPENTIN 100 MG CAPSULE PO SCH ×2 (09:32→16:32)
[2020-04-07] MEDS: DULOXETINE 30 MG CAPSULE.DR PO SCH (09:32)
[2020-04-07] MEDS: SULFAMETH./TRIMETHOPRIM DS 800MG/160MG TABLET PO SCH (09:32)
[2020-04-07] MEDS: OMEPRAZOLE 20 MG CAPSULE.DR PO SCH (09:33)
[2020-04-07] MEDS: OXYcodone/APAP 5/325MG TABLET PO PRN ×2 (09:36→14:51)
[2020-04-07] MEDS: MORPHINE SULFATE 4 MG/ML, 1ML IVPush PRN (11:11)
[2020-04-07 14:51] VITALS: BP 116/77
[2020-04-07] MEDS ORDERED: GABA-826 PO (15:32)
[2020-04-07] MEDS ORDERED: Sulfameth./Trimethoprim Ds PO (15:32)
[2020-04-07] MEDS ORDERED: Vancomycin Per Pharmacy MC (15:32)
[2020-04-07] MEDS ORDERED: CARV3.1212 PO (15:32)
[2020-04-07] MEDS ORDERED: LEVO88TA2 PO (15:32)
[2020-04-07] MEDS ORDERED: SENN-193 PO (15:32)
[2020-04-07 19:15] VITALS: BP 107/70
== END 2020-04-07 19:48 | DRG 477 ==
LOC: 5SO 17:36 → 3N 03-25 15:14
PROVIDERS: ADMIT Hospitalist; ATTEND Internal Medicine
PROC: 0QBS3ZX Excision of Coccyx, Percutaneous Approach, Diagnostic (ICD-10-PCS; principal; 2020-04-01)
DX: M46.28 Osteomyelitis of vertebra, sacral and sacrococcygeal region (principal); L89.154 Pressure ulcer of sacral region, stage 4; E43 Unspecified severe protein-calorie malnutrition; D68.69 Other thrombophilia; I47.2 Ventricular tachycardia; I48.20 Chronic atrial fibrillation, unspecified; B95.2 Enterococcus as the cause of diseases classified elsewhere; R62.7 Adult failure to thrive; E03.9 Hypothyroidism, unspecified; E78.5 Hyperlipidemia, unspecified; E86.0 Dehydration; G47.00 Insomnia, unspecified; G62.9 Polyneuropathy, unspecified; G89.29 Other chronic pain; I10 Essential (primary) hypertension; E66.9 Obesity, unspecified; I25.10 Atherosclerotic heart disease of native coronary artery without angina pectoris; Z79.899 Other long term (current) drug therapy; Z87.11 Personal history of peptic ulcer disease; Z95.1 Presence of aortocoronary bypass graft; Z95.2 Presence of prosthetic heart valve; Z88.0 Allergy status to penicillin; Z68.23 Body mass index [BMI] 23.0-23.9, adult
CPT/HCPCS: 20220; 36415; 72197; 77012; 80048; 80053; 80202; 82550; 82565; 82607; 83735; 84100; 84439; 84443; 85025; 87070; 87075; 87077; 87102; 87106; 87186; 87205; 88305; 99156; 99157; G0378; J0696; J1644; J2250; J3010; J3370; J3475; J2270; J2310; J7030; J7040; J7050